=== PATIENT | male | born 1940 | race Caucasian/White ===

== ENCOUNTER 2018-04-04 19:06 | Observation (INO) | payer MEDICARE ==
[~2018-04-04 19:06] MED LIST: Iopamidol 370 76% 100 ML VIAL ONE
[2018-04-04] MEDS ORDERED: Ketorolac Tromethamine 30 MG/ML VIAL ONE (19:45)
[2018-04-04 19:54] LABS: #Eosinphils 0.4 thou/uL (0.0-0.7); #Lymphocytes 1.7 thou/uL (1.20-3.40); #Monocytes 0.4 thou/uL (0.11-0.59); #Neutrophils 5.6 thou/uL (1.40-6.50); %Basophils 0.3 % (0.0-1.0); %Eosinophils 4.8 % (0.0-10.0); %Lymphocytes 20.9 % (21.0-51.0); %Monocytes 5.2 % (0.0-10.0); %Neutrophils 68.8 % (42.0-75.0); Hemoglobin 13.7 g/dL (14.0-18.0); Mean Corpuscular HGB CONC 33.8 g/dL (32.0-36.0); Mean Corpuscular Hemoglobin 29.5 pg (27.0-31.0); Mean Corpuscular Volume 87.2 fL (78.0-98.0); Mean Platelet Volume 7.2 fL (7.4-10.4); Platelet Count 203 thou/uL (130-400); RBC Distribution Width 12.9 % (11.5-14.5); Red Blood Cell (RBC) Count 4.65 mill/uL (4.70-6.10); White Blood Cell (WBC) Count 8.1 thou/uL (4.8-10.8)
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
[2018-04-04 20:14] LABS: ALT (SGPT) 40 U/L (8-55); AST (SGOT) 34 U/L (5-34); Albumin 4.1 g/dL (3.4-4.8); Alkaline Phosphatase 70 U/L (40-150); Anion Gap 15 mmol/L (10-20); BUN (Urea Nitrogen) 15 mg/dL (8.4-25.7); Bilirubin, Total 0.4 mg/dL (0.2-1.2); Calc. Creatinine Clearance 0 mL/min (70-130); Calcium 9.6 mg/dL (7.8-10.44); Carbon Dioxide 25 mmol/L (23-31); Chloride 102 mmol/L (98-107); Estimated GFR-MDRD 66; Globulin 3.5 g/dL (2.4-3.5); Glucose 138 mg/dL (83-110); Potassium 4.1 mmol/L (3.5-5.1); Protein, Total 7.6 g/dL (5.8-8.1); Sodium 138 mmol/L (136-145)
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
[2018-04-04] MEDS ORDERED: Adacel (T-DAP) 0.5 ML SYRINGE ONE (20:51)
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
[2018-04-04] MEDS ORDERED: Bacitracin Zinc 1 Packet ONE (21:51)
[2018-04-04] MEDS ORDERED: Dextrose 5% in Water 1,000 ML IV PRN (22:29)
[2018-04-04] MEDS ORDERED: Ondansetron ODT 4 MG TAB PO PRN (22:29)
[2018-04-04] MEDS ORDERED: Rib Fracture Protocol PO SCH (22:29)
[2018-04-04] MEDS ORDERED: Ondansetron PF 4 MG/2 ML Vial IVP PRN (22:29)
[2018-04-04] MEDS ORDERED: Dextrose 50% Abboject 50 ML SYRINGE SLOW IVP PRN (22:29)
[2018-04-04] MEDS ORDERED: hydrALAZINE 20 MG/ML VIAL SLOW IVP PRN (22:29)
[2018-04-04] MEDS ORDERED: Cyclobenzaprine 10 MG TAB PO PRN (23:00)
[2018-04-04] MEDS: traMADol HCl 50 MG TAB PO SCH (23:12)
[2018-04-04] MEDS: Sodium Chloride 0.9% 1,000 ML IV SCH (23:12)
[2018-04-04] MEDS: Acetaminophen 500 MG TAB PO SCH (23:12)
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
[2018-04-05 00:32] VITALS: BMI 24.8
[2018-04-05] MEDS: Ibuprofen 600 MG TAB PO SCH ×2 (05:45→15:50)
[2018-04-05] MEDS: Acetaminophen 500 MG TAB PO SCH (05:46)
[2018-04-05] MEDS: traMADol HCl 50 MG TAB PO SCH (05:46)
[2018-04-05] MEDS: Sodium Chloride 0.9% 1,000 ML IV SCH (05:52)
[2018-04-05 07:12] LABS: #Eosinphils 0.2 thou/uL (0.0-0.7); #Lymphocytes 1.6 thou/uL (1.20-3.40); #Monocytes 0.6 thou/uL (0.11-0.59); #Neutrophils 4.1 thou/uL (1.40-6.50); %Basophils 0.5 % (0.0-1.0); %Eosinophils 3.4 % (0.0-10.0); %Lymphocytes 24.3 % (21.0-51.0); %Monocytes 9.2 % (0.0-10.0); %Neutrophils 62.5 % (42.0-75.0); Hemoglobin 12.2 g/dL (14.0-18.0); Mean Corpuscular HGB CONC 33.8 g/dL (32.0-36.0); Mean Corpuscular Hemoglobin 29.7 pg (27.0-31.0); Mean Corpuscular Volume 87.7 fL (78.0-98.0); Mean Platelet Volume 7.3 fL (7.4-10.4); Platelet Count 176 thou/uL (130-400); White Blood Cell (WBC) Count 6.6 thou/uL (4.8-10.8)
[2018-04-05 07:30] LABS: Anion Gap 13 mmol/L (10-20); BUN (Urea Nitrogen) 16 mg/dL (8.4-25.7); Calc. Creatinine Clearance 79 mL/min (70-130); Calcium 8.7 mg/dL (7.8-10.44); Carbon Dioxide 24 mmol/L (23-31); Chloride 103 mmol/L (98-107); Estimated GFR-MDRD 89; Glucose 127 mg/dL (83-110); Potassium 3.7 mmol/L (3.5-5.1); Sodium 136 mmol/L (136-145)
[2018-04-05] MEDS: Gabapentin 100 MG CAP PO SCH ×2 (08:02→15:50)
[2018-04-05] MEDS ORDERED: Prevnar 13-Val Conj/PF 0.5 ML SYRINGE IM ONE (09:00)
[2018-04-05] MEDS ORDERED: Famotidine 20 MG TAB PO SCH (09:00)
[2018-04-05 16:00] VITALS: BP 162/88; TEMP 97.4
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
== END 2018-04-05 16:09 | disposition home or self-care (01) ==
LOC: ERS 19:06 → SJJU 21:06
PROVIDERS: ADMIT Surgery; ATTEND Surgery
DX: S22.42XA Multiple fractures of ribs, left side, initial encounter for closed fracture (principal); S61.219A Laceration without foreign body of unspecified finger without damage to nail, initial encounter; S40.812A Abrasion of left upper arm, initial encounter; E78.00 Pure hypercholesterolemia, unspecified; K44.9 Diaphragmatic hernia without obstruction or gangrene; K57.30 Diverticulosis of large intestine without perforation or abscess without bleeding; Z88.0 Allergy status to penicillin; Z79.1 Long term (current) use of non-steroidal anti-inflammatories (NSAID); Z79.899 Other long term (current) drug therapy; Z98.890 Other specified postprocedural states; V44.5XXA Car driver injured in collision with heavy transport vehicle or bus in traffic accident, initial encounter
CPT/HCPCS: 70450; 71260; 72125; 73060; 73590; 74177; 80048; 80053; 85025 ×2; 90471; 90670; 90715; 94640 ×2; 96361 ×2; 96374; 97139 ×3; 97535; 99285; G0009; G0378 ×2; 36415; G0390; J1885; J7620

== ENCOUNTER 2018-07-11 13:03 | Outpatient (CLI) | payer MEDICARE ==
--- NOTE | 2018-07-11 14:39 | MRI ---
Exam: LUMBAR SPINE MRI WITH AND WITHOUT CONTRAST: HISTORY: Osteoarthritis of the lumbar spine. History of lumbar fusion. COMPARISON: None. Correlation: CT lumbar spine 02/09/2016. FINDINGS: Limited evaluation due to extensive metallic susceptibility artifact from posterior fusion hardware s tarting at T11 and extending to the L5 level. There does appear to be mild loss of vertebral body height at L1, L2, and L3. Findings are felt to be chronic given appropriate T1 marrow signal intensit y, without evidence of STIR hyperintensity. There is no STIR hyperintensity to suggest vertebral body edema or ligamentous injury. There is a hemangioma along the left T11 level. Symmetric signal intensity of the paraspinal muscles. Appropriate signal intensity in the visualized solid organs. Left renal parapelvic cyst is noted. Conus medullaris terminates at the upper aspect of L1. T12-L1: No significant central canal stenosis or neural foraminal narrowing. L1-L2: Desiccation with mild loss of disc space height. No significant central canal stenosis or neur al foraminal narrowing. L2-L3: Adequate disc hydration. No significant central canal stenosis. Neural foramina are patent. Mi ld retropulsion of the L2 vertebral body without significant central canal stenosis. L3-L4: Posterior laminectomy defect. No significant central canal stenosis or neural foraminal narrow ing. L4-L5: Limited evaluation due to extensive metallic susceptibility artifact. Adequate disc hydration. No evidence of significant central canal stenosis or significant neural foraminal narrowing. L5-S1: Moderate loss of disc space height. Generalized disc bulge abuts the thecal sac. There is a sm all amount of midline inferior disc extrusion. Disc material does encroach upon the right subarticular zone. There may be mild mass effect upon the traversing right S1 nerve root. Left subart icular zone is unremarkable. There is mild central canal stenosis of the disc space level probably due to epidural lipomatosis. Severe bilateral foraminal narrowing. On the postcontrast images, there is no abnormal enhancement with regards to the vertebral bodies or with regards to the contents of the thecal sac including the cauda equina and conus medullaris. IMPRESSION: 1. Limited evaluation due to excessive metallic susceptibility artifact. There are varying degrees of central canal stenosis and foraminal narrowing as detailed above. No evidence of high-grade central canal stenosis. 2. Severe bilateral foraminal narrowing at L5-S1. 3. No acute fractures. Remote compression fractures at L1, L2 and L3. Transcribed Date/Time: 07/11/2018 2:45 PM
== END 2018-07-11 13:04 | disposition home or self-care (01) ==
LOC: MRI 13:03
PROVIDERS: ATTEND Orthopaedic Surgery
DX: M47.816 Spondylosis without myelopathy or radiculopathy, lumbar region (principal); M54.31 Sciatica, right side; M48.061 Spinal stenosis, lumbar region without neurogenic claudication
CPT/HCPCS: 72158

== ENCOUNTER 2025-01-21 17:31 | Inpatient (IN) | payer MEDICARE ==
[2025-01-21] MEDS ORDERED: Guaifenesin DM 100-10/5 ML UDCUP PO PRN (20:07)
[2025-01-21] MEDS ORDERED: Acetaminophen 325 MG TAB PO PRN (20:07)
[2025-01-21] MEDS ORDERED: Ondansetron PF 4 MG/2 ML Vial IVP PRN (20:07)
[2025-01-21] MEDS ORDERED: Calcium Carbonate 500 MG ChewTAB PO PRN (20:07)
[2025-01-21] MEDS: Gabapentin 100 MG CAP PO SCH (21:17)
[2025-01-21 21:20] VITALS: BMI 22.0
[2025-01-22 04:09] LABS: Cardiac Risk 5.5 (Less than 4.5); Cholesterol 171.0 mg/dl (< 200 Desired); HDL Cholesterol 31.0 mg/dL (>60 Neg Risk); LDL Cholesterol, Calculated 103.0 mg/dL; Triglycerides 186.0 mg/dL (Less than 150)
[2025-01-22] MEDS: FLU (Fluad Triv) 25-26 (65UP)PF 45 MCG/0.5 ML Syringe IM ONE (09:10)
[2025-01-22] MEDS: Enoxaparin 40 MG (0.4 mL) SYRINGE SC SCH (09:10)
[2025-01-22] MEDS: Aspirin 81 mg Enteric Coated Tablet PO SCH (09:10)
[2025-01-22] MEDS: Losartan 25 MG TAB PO SCH (15:51)
[2025-01-23 04:00] LABS: #Basophils 0.05 10x3/uL (0.0-0.2); #Eosinophils 0.46 10x3/uL (0.0-0.7); #Monocytes 0.45 10x3/uL (0.11-0.59); #Neutrophils 1.77 10x3/uL (1.40-6.50); %Basophils 1.1 % (0.0-1.0); %Eosinophils 10.3 % (0.0-10.0); %Lymphocytes 38.4 % (21.0-51.0); %Monocytes 10.1 % (0.0-10.0); %Neutrophils 39.9 % (42.0-75.0); Hematocrit 35.4 % (42.0-52.0); Hemoglobin 11.2 g/dL (14.0-18.0); Mean Corpuscular Hemoglobin 28.4 pg (27.0-31.0); Mean Corpuscular Volume 89.6 fL (78.0-98.0); Platelet Count 172 10x3/uL (130-400); Red Blood Cell (RBC) Count 3.95 mill/uL (4.70-6.10); White Blood Cell (WBC) Count 4.45 10x3/uL (4.8-10.8)
[2025-01-23 04:21] LABS: Anion Gap 12 mmol/L (10-20); BUN (Urea Nitrogen) 20 mg/dL (8.4-25.7); Calc. Creatinine Clearance 50 mL/min (70-130); Calcium 8.8 mg/dL (7.8-10.44); Carbon Dioxide 26 mmol/L (23-31); Chloride 104 mmol/L (98-107); Glucose 98 mg/dL (83-110); Potassium 3.8 mmol/L (3.5-5.1); Sodium 138 mmol/L (136-145)
[2025-01-23] MEDS: Losartan 25 MG TAB PO SCH (09:24)
[2025-01-24 04:13] LABS: #Basophils 0.06 10x3/uL (0.0-0.2); #Eosinophils 0.41 10x3/uL (0.0-0.7); #Monocytes 0.50 10x3/uL (0.11-0.59); #Neutrophils 2.21 10x3/uL (1.40-6.50); %Basophils 1.2 % (0.0-1.0); %Eosinophils 8.4 % (0.0-10.0); %Lymphocytes 34.4 % (21.0-51.0); %Monocytes 10.3 % (0.0-10.0); %Neutrophils 45.5 % (42.0-75.0); Hematocrit 37.9 % (42.0-52.0); Hemoglobin 12.4 g/dL (14.0-18.0); Mean Corpuscular Hemoglobin 28.7 pg (27.0-31.0); Mean Corpuscular Volume 87.7 fL (78.0-98.0); Platelet Count 186 10x3/uL (130-400); Red Blood Cell (RBC) Count 4.32 mill/uL (4.70-6.10); White Blood Cell (WBC) Count 4.86 10x3/uL (4.8-10.8)
[2025-01-24 04:30] LABS: Anion Gap 12 mmol/L (10-20); BUN (Urea Nitrogen) 21 mg/dL (8.4-25.7); Calc. Creatinine Clearance 69 mL/min (70-130); Calcium 9.2 mg/dL (7.8-10.44); Carbon Dioxide 27 mmol/L (23-31); Chloride 104 mmol/L (98-107); Glucose 104 mg/dL (83-110); Potassium 3.8 mmol/L (3.5-5.1); Sodium 139 mmol/L (136-145)
[2025-01-24] MEDS: Milk Of Magnesia 30 ML UDCUP PO SCH (16:33)
[2025-01-24] MEDS: Senokot S 8.6-50 MG TAB PO SCH (16:33)
[2025-01-25 04:25] LABS: #Basophils 0.06 10x3/uL (0.0-0.2); #Eosinophils 0.44 10x3/uL (0.0-0.7); #Monocytes 0.58 10x3/uL (0.11-0.59); #Neutrophils 2.53 10x3/uL (1.40-6.50); %Basophils 1.1 % (0.0-1.0); %Eosinophils 8.0 % (0.0-10.0); %Lymphocytes 34.3 % (21.0-51.0); %Monocytes 10.5 % (0.0-10.0); %Neutrophils 45.9 % (42.0-75.0); Hematocrit 34.4 % (42.0-52.0); Hemoglobin 11.2 g/dL (14.0-18.0); Mean Corpuscular Hemoglobin 28.6 pg (27.0-31.0); Mean Corpuscular Volume 88.0 fL (78.0-98.0); Platelet Count 177 10x3/uL (130-400); Red Blood Cell (RBC) Count 3.91 mill/uL (4.70-6.10); White Blood Cell (WBC) Count 5.51 10x3/uL (4.8-10.8)
[2025-01-25 04:41] LABS: Anion Gap 12 mmol/L (10-20); BUN (Urea Nitrogen) 29 mg/dL (8.4-25.7); Calc. Creatinine Clearance 58 mL/min (70-130); Calcium 8.9 mg/dL (7.8-10.44); Carbon Dioxide 26 mmol/L (23-31); Chloride 103 mmol/L (98-107); Glucose 104 mg/dL (83-110); Potassium 4.0 mmol/L (3.5-5.1); Sodium 137 mmol/L (136-145)
[2025-01-27 01:28] LABS: Magnesium 1.9 mg/dL (1.6-2.6)
[2025-01-27 19:47] VITALS: BMI 22.0
[2025-01-28 11:01] VITALS: BP 127/75; TEMP 97.8
== END 2025-01-28 15:15 | DRG 64 ==
LOC: 2SE 19:27
PROVIDERS: ADMIT Internal Medicine; ATTEND Internal Medicine
DX: I63.89 Other cerebral infarction (principal); G93.5 Compression of brain; G81.91 Hemiplegia, unspecified affecting right dominant side; I65.02 Occlusion and stenosis of left vertebral artery; I48.91 Unspecified atrial fibrillation; F03.90 Unspecified dementia, unspecified severity, without behavioral disturbance, psychotic disturbance, mood disturbance, and anxiety; I10 Essential (primary) hypertension; E78.5 Hyperlipidemia, unspecified; R47.01 Aphasia; Z79.899 Other long term (current) drug therapy; Z88.0 Allergy status to penicillin
CPT/HCPCS: 36415; 36416; 70544; 70549; 70553; 76376; 80048; 80061; 83735; 84443; 85025; 93005; 93010; 93306; J1650